=== PATIENT | female | born 1990 | race Caucasian/White ===

== ENCOUNTER 2020-07-17 20:31 | Emergency (ER) | payer SELFPAY ==
[2020-07-17] MEDS ORDERED: Morphine 4 MG/ML VIAL ONE ×2 (20:35→20:56)
[2020-07-17] MEDS ORDERED: Boostrix 0.5 ML (Tdap) VIAL ONE (22:42)
== END 2020-07-17 23:18 | disposition home or self-care (01) ==
LOC: MADERS 20:31
DX: T22.222A Burn of second degree of left elbow, initial encounter (principal); T24.202A Burn of second degree of unspecified site of left lower limb, except ankle and foot, initial encounter; F17.210 Nicotine dependence, cigarettes, uncomplicated; X08.8XXA Exposure to other specified smoke, fire and flames, initial encounter
CPT/HCPCS: 16020; 90471; 90715; 96374; J2270

== ENCOUNTER 2021-10-12 11:14 | Emergency (ER) | payer SELFPAY ==
[2021-10-12 21:29] LABS: SARS-CoV-2 PCR by NAA DETECTED (NotDetected)
== END 2021-10-12 12:54 | disposition home or self-care (01) ==
LOC: MADERS 11:14
DX: U07.1 COVID-19 (principal); F17.210 Nicotine dependence, cigarettes, uncomplicated
CPT/HCPCS: 71045; 87804; U0003; U0005